=== PATIENT | male | born 1990 | race Caucasian/White ===

== ENCOUNTER 2017-09-06 07:45 | Day surgery (SDC) | payer OTHER ==
[~2017-09-06] VITALS: Ht 180.3 cm; Wt 96.4 kg
[2017-09-06 08:11] VITALS: Ht 180.3 cm; Wt 96.4 kg
[2017-09-06] MEDS ORDERED: ONDA4TAB8 PO (08:17)
[2017-09-06] MEDS ORDERED: ZOLP10TA5 PO (08:20)
[2017-09-06] MEDS ORDERED: OXYC30TA PO (08:20)
[2017-09-06] MEDS ORDERED: DOCU60SY5 PO (08:20)
[2017-09-06] MEDS ORDERED: TIZA4TAB PO (08:20)
[2017-09-06] MEDS ORDERED: MORP60TA37 PO (08:20)
[2017-09-06] MEDS ORDERED: CLON2TAB3 PO (08:20)
[2017-09-06] MEDS ORDERED: PANT20TA3 PO (08:20)
[2017-09-06 08:56] VITALS: BP 145/83; PULSE 75; RESP 18
[2017-09-06] MEDS ORDERED: PROPOFOL 40 ML ONE (09:16)
--- NOTE | 2017-09-06 09:31 | OPPN ---
Date/Time of Note Date/Time of Note DATE: 09/06/17 TIME: 09:30 Operative Report Preoperative Diagnosis Abdominal pain Chronic heartburn History of gastrointestinal bleeding Postoperative Diagnosis Gastroesophageal reflux disease Gastritis with erosions Operation/Procedure Performed Esophagogastroduodenoscopy and biopsy Surgeon see signature line call center assistant None Anesthesia: MAC Estimated blood loss: none Transfusion Required none Specimen Gastric mucosal biopsy Grafts/Implants none Complications none JASEN SCHILLING MD Sep 06, 2017 09:31
--- NOTE | 2017-09-06 09:31 | OPPN ---
Date/Time of Note Date/Time of Note DATE: 09/06/17 TIME: 09:30 Operative Report Preoperative Diagnosis Abdominal pain Chronic heartburn History of gastrointestinal bleeding Postoperative Diagnosis Gastroesophageal reflux disease Gastritis with erosions Operation/Procedure Performed Esophagogastroduodenoscopy and biopsy Surgeon see signature line physical therapy assistant None Anesthesia: MAC Estimated blood loss: none Transfusion Required none Specimen Gastric mucosal biopsy Grafts/Implants none Complications none JASEN SCHILLING MD Sep 06, 2017 09:31
--- NOTE | 2017-09-06 09:31 | OPPN ---
Date/Time of Note Date/Time of Note DATE: 09/06/17 TIME: 09:30 Operative Report Preoperative Diagnosis Abdominal pain Chronic heartburn History of gastrointestinal bleeding Postoperative Diagnosis Gastroesophageal reflux disease Gastritis with erosions Operation/Procedure Performed Esophagogastroduodenoscopy and biopsy Surgeon see signature line autopsy assistant None Anesthesia: MAC Estimated blood loss: none Transfusion Required none Specimen Gastric mucosal biopsy Grafts/Implants none Complications none JASEN SCHILLING MD Sep 06, 2017 09:31
[2017-09-06 09:54] VITALS: BP 123/78; RESP 20
--- NOTE | 2017-09-06 10:47 | GILP ---
DATE OF PROCEDURE: NAME OF PROCEDURES: Esophagogastroduodenoscopy and biopsy. SURGEON: Ever Steve MD PREOPERATIVE DIAGNOSES: 1. Upper abdominal pain. 2. Chronic heartburn. 3. History of gastrointestinal tract bleeding. POSTOPERATIVE DIAGNOSES: 1. Gastroesophageal reflux disease. 2. Gastritis with erosions. 3. Gastric mucosal biopsies were taken for Helicobacter pylori test. INDICATION FOR THE PROCEDURE: Mr. Evan Hartman is a 26-year-old male patient who was complaining of upper abdominal pain and chronic heartburn, not responding to therapy. Patient also had history of upper gastrointestinal tract bleeding. The patient was scheduled for endoscopic examination for further evaluation. The procedure and possible complications are well explained to the patient, he understood and consen ariel to the procedure. DESCRIPTION OF PROCEDURE: Under the influence of anesthesia, the gastroscope was carefully introduc ed into the esophagus and under direct vision, it was advanced to the stomach and through the pyloru s into the duodenal bulb and descending duodenum. FINDINGS: ESOPHAGUS: The patient had gastroesophageal reflux disease. STOMACH: She had gastritis with erosions. Gastric mucosal biopsies were taken for H. pylori test. DUODENUM: Normal. He tolerated the procedure very well and there was no complication from the procedure. At the end o f the procedure, he was awake with stable vital signs and he was discharged home to the care of his family. IMPRESSION: Please see postoperative diagnosis. PLAN: 1. Continue pantoprazole. 2. Add Zantac 300 mg p.o. at bedtime. 3. Await H. pylori test report. Dictated By: EVER HANCOCK/MARK Conf#: [id number] DID#: [id number]
--- NOTE | 2017-09-08 13:56 | CONS ---
PATIENT NAME: EVAN DE LA O DATE OF ADMISSION: DATE OF CONSULTATION: 08/09/[address] Lira, I thank you very much for this kind referral. Mr. Evan De La O is a 26-year-old male patient who has been referred to me for further evaluation of abdominal pain and chronic heartburn not responding to therapy. The patient has been taking Zofran and pantoprazole 20 mg a day. He also gives a history of hematemesis. He gives history of peptic ulcer disease. He is status post antibiotic therapy for Helicobacter pylori infection. He is not taking any nonsteroidal anti- inflammatory agents. No history of gallstones or liver disease. The patient also complains of change in the bowel habits and rectal bleeding. He has a history of diverticulosis and colon polyps. He stated she has been losing weight. He is not hypertensive or diabetic. No heart disease or lung problem. No kidney disease. He has got chronic pain syndrome. He is on multiple pain medications including oxycodone and morphine. He also has anxiety disorder and he is on clonazepam. He is status post ventral hernia surgery. SOCIAL HISTORY: He is a smoker. He also smokes marijuana. No alcohol abuse. FAMILY HISTORY: No family history of gastrointestinal tract neoplasm. ALLERGIES: NO DRUG ALLERGIES. MEDICATION: 1. Zofran. 2. Pantoprazole. 3. Oxycodone. 4. Morphine. 5. Clonazepam. PHYSICAL EXAMINATION: VITALS: He is 5 feet 11 inches tall, weighs 210 pounds. HEART: Normal heart sounds. LUNGS: Clear. ABDOMEN: Soft. No masses. Normal bowel sounds. NEURO: Normal neurological exam. IMPRESSION: 1. Upper abdominal pain and chronic heartburn, not responding to therapy with Zofran and pantoprazole. 2. History of hematemesis. 3. Status post antibiotic therapy for Helicobacter pylori infection. 4. History of rectal bleeding. 5. History of diverticulosis of the colon and colon polyps. 6. Weight loss. 7. Chronic pain syndrome. The patient is on multiple pain medications including oxycodone and morphine. 8. Anxiety disorder. 9. Status post ventral hernia surgery. 10. Patient is a smoker, and he also smokes marijuana. PLAN: 1. Endoscopy examination to rule out peptic ulcer disease and erosive esophagitis. 2. Colonoscopy for further evaluation of rectal bleeding. 3. Because of the multiple pain medications he has been taking and use of marijuana, the patient will be resistant to narcotics. He needs monitored in anesthesia care. The patient also has anxiety disorder. The procedures and possible complications were well explained to the patient. He understands and consents to the procedures. I thank you once again. With warmest personal regards, Dictated By: MD SANTI Cardona/pankaj/narayan /Document#: [id number]
== END 2017-09-06 10:35 | disposition home or self-care (01) ==
LOC: GIL 07:45
PROVIDERS: ATTEND Internal Medicine Gastroenterology
DX: K21.9 Gastro-esophageal reflux disease without esophagitis (principal); K29.60 Other gastritis without bleeding; F17.200 Nicotine dependence, unspecified, uncomplicated
CPT/HCPCS: 43239; 87081; Z7610

== ENCOUNTER 2017-10-12 14:02 | Day surgery (SDC) | payer OTHER ==
[~2017-10-12] VITALS: Ht 180.3 cm; Wt 98.3 kg
[~2017-10-12 14:02] MED LIST: CLON2TAB3 PO; DOCU60SY5 PO; MORP60TA37 PO; ONDA4TAB8 PO; OXYC30TA PO; PANT20TA3 PO; TIZA4TAB PO; ZOLP10TA5 PO
[2017-10-12 15:43] VITALS: Ht 180.3 cm; Wt 98.3 kg
[2017-10-12] MEDS ORDERED: FENTAnyl 50 MCG/ML VIAL ONE (16:03)
[2017-10-12] MEDS ORDERED: MIDAZOLAM 1 MG/ML 2 ML INJ ONE (16:03)
[2017-10-12] MEDS ORDERED: LIDOCAINE 2% (SDV) 5 ML INJ ONE (16:03)
[2017-10-12] MEDS ORDERED: PROPOFOL 20 ML ONE (16:03)
[2017-10-12 16:10] VITALS: BP 181/83; PULSE 57; RESP 12
--- NOTE | 2017-10-12 16:37 | OPPN ---
Date/Time of Note Date/Time of Note DATE: 10/12/17 TIME: 16:36 Operative Report Preoperative Diagnosis Rectal bleeding Postoperative Diagnosis Internal and external hemorrhoids Operation/Procedure Performed Colonoscopy Surgeon see signature line dental hygiene administrative assistant None Anesthesia: MAC Estimated blood loss: none Transfusion Required none Specimen None Grafts/Implants none Complications none JASEN SCHILLING MD Oct 12, 2017 16:37
[2017-10-12 17:17] VITALS: BP 165/84; PULSE 50; RESP 19
--- NOTE | 2017-10-12 20:44 | GILP ---
DATE OF PROCEDURE: NAME OF PROCEDURE: Colonoscopy. SURGEON: Jasen Steve MD PREOPERATIVE DIAGNOSIS: Rectal bleeding. POSTOPERATIVE DIAGNOSES: 1. Colonoscopy all the way to the cecum. 2. Internal and external hemorrhoids. INDICATION FOR THE PROCEDURE: Mr. Evan David is a 26-year-old male patient who was complaining of rectal bleeding. He has history of colon polyps. The patient was scheduled for colonoscopy for further evaluation. The procedure and possible complications were well explained to the patient, he understood and conse nted to the procedure. DESCRIPTION OF PROCEDURE: Under the influence of anesthesia, the colonoscope was carefully introduc ed in the rectum and under direct vision, it was advanced all the way to the cecum. FINDINGS: The patient had internal and external hemorrhoids. No colitis or neoplasm was identified . He tolerated the procedure very well and there was no complication from the procedure. At the end o f the procedure, he was awake with stable vital signs and he was discharged home to the care of his family. IMPRESSION: Please see postoperative diagnoses. PLAN: 1. Anusol-HC 2.5% cream b.i.d. 2. If the rectal bleeding continues, may consider hemorrhoidectomy. Dictated By: JASEN HANCOCK/MARK Conf#: [id number] DID#: [id number]
== END 2017-10-12 18:43 | disposition home or self-care (01) ==
LOC: GIL 14:02
PROVIDERS: ATTEND Internal Medicine Gastroenterology
DX: K64.8 Other hemorrhoids (principal); K64.4 Residual hemorrhoidal skin tags; F41.8 Other specified anxiety disorders
CPT/HCPCS: 45378; J2250; J3010; Z7610